=== PATIENT | female | born 1945 | race Hispanic/Latino ===

== ENCOUNTER 2018-09-07 16:35 | Emergency (ER) | payer MEDICARE, OTHER ==
[~2018-09-07] VITALS: Ht 165.1 cm; Wt 72.6 kg
[2018-09-07] MEDS ORDERED: METFORMIN HCL500 MG PO (17:01)
[2018-09-07] MEDS ORDERED: NORCO 5-325 TA1 EACH PO (18:46)
--- NOTE | 2018-09-08 08:23 | OR ---
[facility] [address] [facility] [place], [place] [address] Signed DATE OF OPERATION: 09/07/2018 SURGEON: Martin Castelan MD PREOPERATIVE DIAGNOSIS: Anterior dislocation of right shoulder. POSTOPERATIVE DIAGNOSIS: Anterior dislocation of right shoulder. PROCEDURE PERFORMED: Closed reduction. ANESTHESIA: Conscious sedation by Justine. BRIEF HISTORY: Linda is a 73-year-old female, who suffered a ground level fall today. She noted severe shoulder pain and was taken to the ER by her family. The radiograph showed an anterior and inferior dislocation. Multiple attempts by the ER doctor were unsuccessful. Risks and benefits of reduction and conscious sedation were discussed with the family and they elected to proceed. Once she was under adequate sedation with anesthesia monitoring, the arm was abducted, I placed my foot in the axilla, and with longitudinal traction and internal rotation, the shoulder was felt to reduce. She had an abnormal range of motion after that. Post reduction radiographs were pending. She will follow up with me in 7 to 10 days. We will put her in a shoulder immobilizer. Martin Castelan MD BA/NEOL /[id number] Copies: Electronically Signed By: MARTIN CASTELAN MD 09/08/18 0823 PATIENT NAME: LINDA NUR OPERATIVE REPORT DATE OF : 41 REPORT #: [id number] PHYSICIAN: MARTIN CASTELAN MD PCP: NO PRIMARY CARE PHYSICIAN REPORT IS CONFIDENTIAL AND NOT TO BE RELEASED WITHOUT AUTHORIZATION [address] [address] Signed ~ Electronically Signed By: MARTIN CASTELAN MD 09/08/18 0823 PATIENT NAME: LINDA NUR OPERATIVE REPORT DATE OF : 41 REPORT #: [id number] PHYSICIAN: MARTIN CASTELAN MD PCP: NO PRIMARY CARE PHYSICIAN REPORT IS CONFIDENTIAL AND NOT TO BE RELEASED WITHOUT AUTHORIZATION
--- NOTE | 2018-09-08 10:16 | EKG ---
[facility] [address] [facility] [place], [place] [address] Signed Normal sinus rhythm Normal ECG No previous ECGs available Confirmed by RIP BARTHOLOMEW MD ([id number]) on 09/08/2018 10:16:29 AM Electronically Signed By: RIP BARTHOLOMEW MD 09/08/18 1016 PATIENT NAME: LINDA NUR Electrocardiogram DATE OF : 41 PHYSICIAN: RIP BARTHOLOMEW MD REPORT #: [id number] REPORT IS CONFIDENTIAL AND NOT TO BE RELEASED WITHOUT AUTHORIZATION
== END 2018-09-07 20:52 | disposition home or self-care (01) ==
LOC: ED 16:35
PROC: 0RSJXZZ Reposition Right Shoulder Joint, External Approach (ICD-10-PCS; principal; 2018-09-07)
DX: S42.201A Unspecified fracture of upper end of right humerus, initial encounter for closed fracture (principal); S43.034A Inferior dislocation of right humerus, initial encounter; W19.XXXA Unspecified fall, initial encounter; Z79.84 Long term (current) use of oral hypoglycemic drugs
CPT/HCPCS: 23650; 73030; 80053; 85025; 96374; 96375; 99152; 99156; 99157; 99284-25; J1170; J2405